=== PATIENT | female | born 1995 | race African-American/Black ===

== ENCOUNTER 2023-10-24 08:57 | Outpatient (AMB) | payer OTHER, SELFPAY ==
--- NOTE | 2023-10-24 09:05 | A.OFFPC_ITS ---
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 Film Required: No Accompanied by: Self / Same As Patient Allergies No Known Allergies Allergy (Verified 10/24/23 09:30) Medication List - Last Reconciled 10/24/23 by Ludmila Clark MD dextroamphetamine-amphetamine 30 mg ER (Adderall XR) 30 mg PO DAILY sertraline 150 mg PO DAILY Tobacco use date assessed: 10/24/23 Dental Screening Dental Screen Date: 10/24/23 Did you have a dental visit in the last 12 months?: No Did you have a dental problem in the last 6 months where you did not have access to dental care?: No Was dental information given to patient?: Patient has dentist HPI HPI Comments History of Present Illness Details This is a 27-year-old female with mild major depression and morbid obesity that comes for her physical exam. Depression stable with SSRIs and follow by Psychiatry. She is morbidly obese with a BMI of 40.1 and declines weight loss surgery or any other kind of weight loss treatment. Has never had a Pap smear and will be referred to OBGYN for this matter. FOR[facility]LY [facility], [facility] Surgical History No pertinent past surgical history Family History (Updated 10/24/23 @ 09:36 by Ludmila Clark MD) Mother No problems noted. Father No problems noted. Maternal Grandmother Breast cancer, Onset Age: 47 HIV disease Social History (Updated 10/24/23 @ 09:37 by Ludmila Clark MD) Housing: House Alcohol intake: never Patient Tobacco Use Status: Former Tobacco user e-Cigarette/Vaping Use: Never Used Second Hand Smoke Exposure: No service: No Current occupational status: employed Current occupational exposures/hazards: No Cognitive needs: No Hearing needs: No Vision needs: Yes Questionnaire PHQ-9 Over the last 2 weeks, how often have you been bothered by any of the following problems? 1. Little interest or pleasure in doing things: not at all 2. Feeling down, depressed, or hopeless: not at all 3. Trouble falling or staying asleep, or sleeping too much: not at all 4. Feeling tired or having little energy: not at all 5. Poor appetite or overeating: not at all 6. Feeling bad about yourself - or that you are a failure or have let yourself or your family down: not at all 7. Trouble concentrating on things, such as reading the newspaper or watching television: not at all 8. Moving or speaking so slowly that other people could have noticed. Or the opposite - being so fidgety or restless that you have been moving around a lot more than usual: not at all 9. Thoughts that you would be better off or of hurting yourself in some way: not at all Total score: 0 Depression Screening Interpretation: Negative Depression Screening Done: Yes 78168 - PHQ-9 Billing: Yes Source: Developed by Drs. Abraham Byers, Alfreda Bailey, Alok Wood and colleagues, with an educational millicent from [employer] Thrive Questionnaire Date Thrive assessed: 10/24/23 I am a: Patient What is your living situation today?: I have a steady place to live Within the past 12 months, did the food you bought not last and you didn't have the money to get more?: Never true Within the past 12 months, did you worry whether your food would run out before you got money to buy more?: Never true Do you have trouble paying for medicines?: No Do you have trouble getting transportation to medical appointments?: No Do you have trouble paying your heating and electricity bill?: No Do you have trouble taking care of your child, family member or friend?: No Do you have trouble with day-to-day activities such as bathing, preparing meals, shopping, managing finances, etc.?: No Are you currently unemployed and looking for a job?: No Are you interested in more education?: No Please select the resources that you would like help with: None Currently or been in a relationship where the following occur: No concerns reported THRIVE Score: 0 AUDIT C Alcohol Use Questionnaire (AUDIT-C) 1. How often do you have a drink containing alcohol?: Never Total Score: 0 Score Reviewed/Action Taken: No ROBINSON-7 AMB Questionnaire ROBINSON-7 Date ROBINSON - 7 assessed: 10/24/23 Feeling nervous, anxious, or on edge: 0 = Not at all Not being able to stop or control worryin = Not at all Worrying too much about different things: 0 = Not at all Trouble relaxin = Not at all Being so restless that it is hard to sit still: 0 = Not at all Becoming easily annoyed or irritable: 0 = Not at all Feeling afraid as if something awful might happen: 0 = Not at all Total ROBINSON-7 score (0-4 normal; 5-9 mild; 10-14 moderate; 15-21 severe): 0 Source: Developed by Drs. Abraham Byers, Alfreda Bailey, Alok Wood and colleagues, with an educational millicent from [employer] ROBINSON-7 Assessment Billing ROBINSON-7 Assessment Tool: ROBINSON-7 Assessment 93469 Review of Systems Const All systems reviewed & are unremarkable except as noted in HPI and below Card Denies chest pain at rest, Denies chest pain with activity, Denies edema, Denies irregular heart rhythm, Denies claudication, Denies dyspnea, Denies dyspnea on exertion, Denies orthopnea, Denies paroxysmal nocturnal dyspnea and Denies slow heart rate Resp Denies cough, Denies dyspnea and Denies dyspnea on exertion GI Denies abdominal pain, Denies change in bowel habits, Denies excessive flatus, Denies nausea and Denies vomiting Neuro Denies lack of coordination Physical exam (Primary Care) Vital Signs: Last Vital Signs BP 124/80 10/24/23 09:07 BMI result Body Mass Index 40.1 BMI Assessment/Plan discussion: High BMI High, discussed plan: lifestyle, weight reduction, dietary and physical activity Tobacco/Smoking Status: Tobacco use Status Tobacco use date assessed 10/24/23 10/24/23 09:13 Patient Tobacco Use Status Former Tobacco user 10/24/23 09:37 e-Cigarette/Vaping Use Never Used 10/24/23 09:37 PHQ-9: PHQ-9 Score PHQ-9: Total score 0 10/24/23 09:45 Depression Screening Interpretation: Negative Thrive Assessment: Date of Thrive Assessment Date Thrive assessed 10/24/23 10/24/23 09:15 Currently or been in a relationship where the following occur: No concerns reported HENMT Head: Yes normal to inspection, Yes normocephalic and Yes atraumatic Ears: external ears normal Eyes General: appearance normal, both eyes and all related structures Eyelids: Yes eyelids normal Conjunctivae: conjunctivae normal Neck Neck: Yes normal visual inspection and Yes supple Resp Effort & Inspection: normal respiratory effort Auscultation: clear to auscultation bilaterally Cardio Jugular venous distension: no JVD Rate: regular rate Rhythm: regular rhythm Heart sounds: S1 normal heart sound present and S2 normal heart sound present GI Inspection: Yes normal to inspection Palpation (GI): Soft to palpation and nontender Auscultation: normal bowel sounds Skin General skin exam: no rashes or lesions noted Neuro General: no focal motor deficits Extrem General: Yes full ROM Psych Appearance: grossly normal Immunizations Boostrix Tdap 2.5 Lf unit-8 mcg-5 Lf/0.5 mL intramuscular syringe Performing Provider: Ludmila Clark MD [facility] Administered by: SHEILA Garcia on 10/24/23 09:48 Dose Route Admin Location Dispensed Lot Number Expiration Date NDC Mannequin Decorator 0.5 mL IM Right Deltoid 0.5 mL [id number] 12/18/25 [id number] [employer] VIS Given Date VIS Provided VIS Publication Date 10/24/23 Single Vaccine 20 Eligibility Eligibility Date Funding Source Not [facility] Eligible 10/24/23 Private Assessment and Plan Assessment & Plan (1) Physical exam: Code(s): Z00.00 - Encounter for general adult medical examination without abnormal findings Plan: Repeat in a year. (2) Morbid obesity with BMI of 40.0-44.9, adult: Code(s): E66.01 - Morbid (severe) obesity due to excess calories; Z68.41 - Body mass index [BMI] 40.0-44.9, adult Plan: Start diet and exercise. BMI goal is less than 30. (3) Mild major depression: Code(s): F32.0 - Major depressive disorder, single episode, mild Plan: Continue SSRIs. Follow-up with psychiatry. Orders: Orders Lipid Panel Today Z00.00 - Encounter for general adult medical examination without abnormal findings Comprehensive Justin. 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
[2023-10-24 09:07] VITALS: BP 124/80; BMI 40.1
== END 2023-10-24 09:49 | disposition home or self-care (01) ==
PROVIDERS: PCP Internal Medicine; Visit Provider Internal Medicine
DX: Z00.00 Encounter for general adult medical examination without abnormal findings (principal); E66.01 Morbid (severe) obesity due to excess calories; Z68.41 Body mass index [BMI] 40.0-44.9, adult; Z23 Encounter for immunization; F32.0 Major depressive disorder, single episode, mild
CPT/HCPCS: 90471; 90715; 99395

== ENCOUNTER 2023-11-21 13:16 | Outpatient (REF) | payer OTHER, SELFPAY ==
[2023-11-22 06:10] LABS: CT PCR DETECTED (Not Detect.); NG PCR NOT DETECTED (Not Detect.)
[2023-11-22 10:39] LABS: Bacterial Vaginosis PCR NEGATIVE (Negative); Candida Group PCR NOT DETECTED (Not Detect); Candida glab krusei PCR NOT DETECTED (Not Detect); Trichomonas vaginalis PCR NOT DETECTED (Not Detect)
== END 2023-11-21 13:17 | disposition home or self-care (01) ==
LOC: HO.LAB 13:16
PROVIDERS: PCP Internal Medicine; Visit Provider Advanced Practice Midwife
DX: Z00.00 Encounter for general adult medical examination without abnormal findings (principal); N89.8 Other specified noninflammatory disorders of vagina; E66.01 Morbid (severe) obesity due to excess calories; Z68.41 Body mass index [BMI] 40.0-44.9, adult; N92.0 Excessive and frequent menstruation with regular cycle; Z87.42 Personal history of other diseases of the female genital tract; L70.9 Acne, unspecified; L68.0 Hirsutism
CPT/HCPCS: 0352U; 36415; 87491; 87591; 87625; 88175; 99385

== ENCOUNTER 2023-11-21 13:16 | Outpatient (AMB) | payer OTHER, SELFPAY ==
[2023-11-21 13:42] VITALS: BP 128/68; BMI 40.4
--- NOTE | 2023-11-21 13:42 | MHC.OFFVIS ---
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 Toy Stuffer Required: No Information Interpreted: clinical only Lunchroom Supervisor: Lunchroom Supervisor Present Allergies No Known Allergies Allergy (Verified 11/21/23 13:43) Medication List - Last Reconciled 11/21/23 by Lakisha Hernandes CNM dextroamphetamine-amphetamine 30 mg ER (Adderall XR) 30 mg PO DAILY medroxyprogesterone (Depo-Provera) 150 mg IM [id number] sertraline 150 mg PO DAILY Is last menstrual period known: No (depo) Do you need a note to return to daycare/school/sports/work: No HPI HPI 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 She is on Depo-Provera and has been for a long time she took a break from it for few years and was very sexually active in that time but still did not achieve though she was not actively trying but she was extremely sexually active time did not. She wonders if she has PCOS and whether not she is in fertile She currently is not very sexually active but is on the Depo-Provera basically to manage her longstanding history of severe dysmenorrhea and menorrhagia. Her periods were such that they were life altering in every way and that is why she has mostly been on Depo Provera [facility]. Her next dose is due in a month. She says they have talked to her about Mirena is well. She is wondering about getting tested to see if there is anything wrong such as PCOS or endometriosis. FORMERLY [facility] Surgical History No pertinent past surgical history Family History Mother No problems noted. Father No problems noted. Maternal Grandmother Breast cancer, Onset Age: 47 HIV disease Social History Housing: House Alcohol intake: never Patient Tobacco Use Status: Former Tobacco user e-Cigarette/Vaping Use: Never Used Second Hand Smoke Exposure: No service: No Current occupational status: employed Current occupational exposures/hazards: No Cognitive needs: No Hearing needs: No Vision needs: Yes Female Reproductive History Menstrual Age of Menarche: 10 Duration of menses: 6-7 days control method: progesterone injection Total pregnancies: 0 History of abnormal pap smear: No (no previous pap) Physical Exam Vital Signs: Last Vital Signs BP 128/68 11/21/23 13:42 BMI result Body Mass Index 40.4 Const General: healthy appearing, comfortable, no acute distress, well developed and alert Nutritional Appearance: average body habitus Orientation/consciousness: patient oriented x3 Limitations: no limitations HEENT Head: Yes normocephalic Neck Neck: Yes normal visual inspection Chest Chest palpation & inspection: normal inspection of the chest Breast/axilla inspection: normal inspection of the breasts and normal inspection of the axillae Breast/axilla palpation: normal palpation of the breasts and normal palpation of the axillae Resp Effort & Inspection: normal respiratory effort GI Inspection: Yes normal to inspection, No Abdominal wall edema and No distended Palpation (GI): Soft to palpation and nontender Other: External exam within normal limits vagina is pink and moist cervix is nulliparous pink smooth mobile nontender uterus difficult to feel secondary to adipose but feels probably midposition mobile nontender adnexa feels nontender not enlarged has good tone with Kegel. General: Yes bladder normal to palpation External Female Exam: normal external appearance and normal appearance of the urethra Speculum Exam - Vagina: normal appearance of the vagina, normal palpation and normal vaginal discharge Speculum Exam - Cervix: normal appearance of the cervix, normal palpation and nontender Bimanual exam- vagina & uterus: normal bimanual exam, normal palpation, uterine size normal, bladder normal to palpation, consistency normal, normal palpation, uterine mobility normal, uterine shape normal, No Cervical tenderness present, non-tender and no cervical motion tenderness Bimanual Exam- Adnexa, other: normal adnexae, no masses, normal and No adnexal tenderness Neuro General: patient oriented x3 Assessment & Plan Assessment & Plan (1) Morbid obesity with BMI of 40.0-44.9, adult: Code(s): E66.01 - Morbid (severe) obesity due to excess calories; Z68.41 - Body mass index [BMI] 40.0-44.9, adult Category: Medical (2) Hx of dysmenorrhea: Comment: Currently suppressed with Depo-Provera Code(s): Z87.42 - Personal history of other diseases of the female genital tract Category: Medical (3) Hx of infertility: Comment: When she was off Depo-Provera in past.... Code(s): Z87.42 - Personal history of other diseases of the female genital tract Category: Medical (4) Hirsutism: Code(s): L68.0 - Hirsutism Category: Medical (5) Acne: Code(s): L70.9 - Acne, unspecified Category: Medical (6) Menorrhagia with regular cycle: Comment: Currently suppressed with Depo-Provera Code(s): N92.0 - Excessive and frequent menstruation with regular cycle Category: Medical Plan -----Discussed in this visit the following: healthy balanced diet, regular and consistent exercise, getting recommended health screens, doing the best she can for her particular health concerns, kegel exercises, pap smear screening and followup recommendations, mammography screening and SBE, normal changes in cycles in her life stage--- .-I reviewed with the patient, all of the currently common used methods of control that are available. We reviewed how they work in the body, how they are taken, common side effects, uncommon side effects, precautions, and contraindications. -Discussed also factors that influence their effectiveness and use, and womens satisfaction with the method. -Discussed how each are used, and drawbacks of each method as well. -Methods covered included: condoms, control pills, control patches, control rings, Depo-Provera, Nexplanon, Mirena and Kyleena IUDs, and ParaGard IUDs. All of the above methods were covered in great detail including their side effect profiles and common experiences that women have and ways to mitigate against the negative experiences including attention to diet and exercise patient's with bleeding challenges that may occur her and efforts to time the initiation of the method to this start of the menstrual period. - ---Discussed PCOS in general and specifically about the interplay of the abnormal hormonal milieu related to being overweight, with the elevations of many hormone levels, including testosterone and estrogen, as well as others that contribute to cycles that are anovulatory and therefore prolonged, and when periods do come they come very heavy, and can contribute to lots of cramping, with passage of clots and anemia. Discussed the common symptoms related to the elvated hormonal levels, including increased facial hair, male pattern hair thinning, acne, and increased central abdominal girth. Discussed the interplay with difficulty getting when desired, but still possible, and therefore the need to contracept as appropriate and when needed. Discussed the role of weight loss as the primary, most important, and most likely to succeed, intervention, in achieving healthier status as regards PCOS, and ovulatory regular cycles. Additionally the very important relationship to elevated insulin levels, and blood sugars, and high risk of pre diabetes, progressing to diabetes as well as other metabolic syndromes related to this was discussed. Also discussed common interventions for some of the above, including if appropriate, use of oral contraceptives, and progestin iuds, and provera. Orders: Orders Sex Hormone Binding Globulin Today E66.01 - Morbid (severe) obesity due to excess calories, L68.0 - Hirsutism, L70.9 - Acne, unspecified, N92.0 - Excessive and frequent menstruation with regular cycle, Z68.41 - Body mass index [BMI] 40.0-44.9, adult, Z87.42 - Personal history of other diseases of the female genital tract Prolactin Today E66.01 - Morbid (severe) obesity due to excess calories, L68.0 - Hirsutism, L70.9 - Acne, unspecified, N92.0 - Excessive and frequent menstruation with regular cycle, Z68.41 - Body mass index [BMI] 40.0-44.9, adult, Z87.42 - Personal history of other diseases of the female genital tract Lutenizing Hormone Today E66.01 - Morbid (severe) obesity due to excess calories, L68.0 - Hirsutism, L70.9 - Acne, unspecified, N92.0 - Excessive and frequent menstruation with regular cycle, Z68.41 - Body mass index [BMI] 40.0-44.9, adult, Z87.42 - Personal history of other diseases of the female genital tract PAP rfx HPV E6/E7 and 16 18/45 Today Z00.00 - Encounter for general adult medical examination without abnormal findings Bacterial Vaginosis Panel Today N89.8 - Other specified noninflammatory disorders of vagina US pelvic and transvaginal Today E66.01 - Morbid (severe) obesity due to excess calories, L68.0 - Hirsutism, L70.9 - Acne, unspecified, N92.0 - Excessive and frequent menstruation with regular cycle, Z68.41 - Body mass index [BMI] 40.0-44.9, adult, Z87.42 - Personal history of other diseases of the female genital tract Testosterone, Free/Total Today E66.01 - Morbid (severe) obesity due to excess calories, L68.0 - Hirsutism, L70.9 - Acne, unspecified, N92.0 - Excessive and frequent menstruation with regular cycle, Z68.41 - Body mass index [BMI] 40.0-44.9, adult, Z87.42 - Personal history of other diseases of the female genital tract Follicle Stimulating Hormone Today E66.01 - Morbid (severe) obesity due to excess calories, L68.0 - Hirsutism, L70.9 - Acne, unspecified, N92.0 - Excessive and frequent menstruation with regular cycle, Z68.41 - Body mass index [BMI] 40.0-44.9, adult, Z87.42 - Personal history of other diseases of the female genital tract DHEA Sulfate Today E66.01 - Morbid (severe) obesity due to excess calories, L68.0 - Hirsutism, L70.9 - Acne, unspecified, N92.0 - Excessive and frequent menstruation with regular cycle, Z68.41 - Body mass index [BMI] 40.0-44.9, adult, Z87.42 - Personal history of other diseases of the female genital tract CT NG by PCR Today N89.8 - Other specified noninflammatory disorders of vagina Coding Level of Care Code New Pt Prev Care 18-39yr([id number] Diagnoses Morbid obesity with BMI of 40.0-44.9, adult E66.01; Z68.41 Hx of dysmenorrhea Z87.42 Hx of infertility Z87.42 Hirsutism L68.0 Acne L70.9 Menorrhagia with regular cycle N92.0
== END 2023-11-21 14:42 | disposition home or self-care (01) ==
LOC: HO.HWSM 13:16
PROVIDERS: PCP Internal Medicine; Visit Provider Advanced Practice Midwife
DX: Z01.419 Encounter for gynecological examination (general) (routine) without abnormal findings (principal); E66.01 Morbid (severe) obesity due to excess calories; Z68.41 Body mass index [BMI] 40.0-44.9, adult; Z87.42 Personal history of other diseases of the female genital tract; L68.0 Hirsutism; L70.9 Acne, unspecified; N92.0 Excessive and frequent menstruation with regular cycle
CPT/HCPCS: 99385

== ENCOUNTER 2023-11-26 14:37 | Outpatient (REF) | payer OTHER, SELFPAY ==
--- NOTE | ~2023-11-26 | US_ITS ---
EXAMINATION: US PELVIS CLINICAL INFORMATION: Excessive and frequent menstruation with regular cycle, unknown last menstrual period on depo. COMPARISON: None available. TECHNIQUE: Ultrasound of the pelvis is performed using both transabdominal and transvaginal transducers along with Doppler. Transvaginal imaging is performed due to inadequate visualization transabdominally. FINDINGS: The uterus is anteverted and measures 7.2 x 2.3 x 3.9 cm. Prominent, dilated uterine vessels. Endometrial thickness is 1 mm. Right ovary measures 3.7 x 2.1 x 1.9 cm, volume 7.1 mL with multiple small peripheral follicles. Left ovary measures 2.9 x 1.8 x 1.5 cm, volume 4.1 mL and is difficult to characterize as visualization is limited due to bowel gas. No significant free fluid. US/US pelvic and transvaginal IMPRESSION: 1. Endometrial thickness is 1 mm. 2. Prominent, dilated uterine vessels. 3. Right ovary measures 3.7 x 2.1 x 1.9 cm, volume 7.1 mL with multiple small peripheral follicles. 4. Left ovary is difficult to characterize as visualization is limited due to bowel gas. Electronically signed by: Karin Walters MD 12/12/2023 07:40 AM EDT
== END 2023-11-26 14:38 | disposition home or self-care (01) ==
LOC: HO.US 14:37
PROVIDERS: PCP Internal Medicine; Visit Provider Advanced Practice Midwife
DX: E66.01 Morbid (severe) obesity due to excess calories (principal); Z68.41 Body mass index [BMI] 40.0-44.9, adult; Z87.42 Personal history of other diseases of the female genital tract; L68.0 Hirsutism; L70.9 Acne, unspecified; N92.0 Excessive and frequent menstruation with regular cycle
CPT/HCPCS: 76830; 76856

== ENCOUNTER 2024-02-05 13:53 | Outpatient (REF) | payer OTHER, SELFPAY ==
[2024-02-06 03:08] LABS: CT PCR NOT DETECTED (Not Detect.); NG PCR NOT DETECTED (Not Detect.)
[2024-02-06 11:55] LABS: Bacterial Vaginosis PCR NEGATIVE (Negative); Candida Group PCR NOT DETECTED (Not Detect); Candida glab krusei PCR NOT DETECTED (Not Detect); Trichomonas vaginalis PCR NOT DETECTED (Not Detect)
== END 2024-02-05 13:54 | disposition home or self-care (01) ==
LOC: HO.LAB 13:53
PROVIDERS: PCP Internal Medicine; Visit Provider Advanced Practice Midwife
DX: N89.8 Other specified noninflammatory disorders of vagina (principal); Z20.2 Contact with and (suspected) exposure to infections with a predominantly sexual mode of transmission; A74.9 Chlamydial infection, unspecified; N92.0 Excessive and frequent menstruation with regular cycle; L70.9 Acne, unspecified; L68.0 Hirsutism; Z12.4 Encounter for screening for malignant neoplasm of cervix; E28.2 Polycystic ovarian syndrome; Z11.3 Encounter for screening for infections with a predominantly sexual mode of transmission; Z87.42 Personal history of other diseases of the female genital tract
CPT/HCPCS: 0352U; 87491; 87591; 99212

== ENCOUNTER 2024-02-05 13:53 | Outpatient (AMB) | payer OTHER, SELFPAY ==
[2024-02-05 14:17] VITALS: BP 120/70
--- NOTE | 2024-02-05 14:17 | MHC.OFFVIS ---
Vital Signs 02/05/24 14:17 Height 5 ft 7 in BP 120/70 Intake Visit Reasons: Ultra sound follow up/ [facility] Information Interpreted: clinical only Beverage Specialist: Beverage Specialist Present Allergies No Known Allergies Allergy (Verified 02/05/24 14:19) Is last menstrual period known: Yes Last menstrual period: 02/02/24 HPI HPI Ultra sound follow up/ [facility]: Details: Patient is here for follow-up of her ultrasound that she had done that she wanted to have done to questioned why she had not been able to get when she was more interested in that years ago and not contraceptive thing. She is not interested in childbearing at this time or ever actually. She has a history of hirsute is Um somewhat irregular periods she has always been overweight ever since the start of her menses though she thinks she was not this heavy before. She is on Depo-Provera for the last 6-9 months [facility]. She also had chlamydia diagnosed at the last visit so this visit is also for test cure visit. [facility] Surgical History No pertinent past surgical history Family History Mother No problems noted. Father No problems noted. Maternal Grandmother Breast cancer, Onset Age: 47 HIV disease Social History Housing: House Alcohol intake: never Patient Tobacco Use Status: Former Tobacco user e-Cigarette/Vaping Use: Never Used Second Hand Smoke Exposure: No service: No Current occupational status: employed Current occupational exposures/hazards: No Cognitive needs: No Hearing needs: No Vision needs: Yes Female Reproductive History Menstrual Age of Menarche: 10 Date of last menstrual period: 02/02/24 Physical Exam Vital Signs: Last Vital Signs BP 120/70 02/05/24 14:17 Other: Patient has menses as well. nulliparous cervix easily visible. External Female Exam: normal external appearance and normal appearance of the urethra Speculum Exam - Vagina: normal appearance of the vagina and normal vaginal discharge Speculum Exam - Cervix: normal appearance of the cervix and Cervical os closed Results Reviewed Results Reviewed: Patient: Violeta Garcia MR#: [id number] : 1995 Acct:[id number] Age/Sex: 27 / F ADM Date: 11/26/23 Loc: [facility].US Attending Dr: Lakisha Hernandes CNM Ordering Physician: Lakisha Hernandes CNM Date of Service: 11/26/23 Procedure(s): US pelvic and transvaginal Accession Number(s): [id number] cc: Lakisha Hernandes CNM; Ludmila Murray MD~ EXAMINATION: US PELVIS CLINICAL INFORMATION: Excessive and frequent menstruation with regular cycle, unknown last menstrual period on depo. COMPARISON: None available. TECHNIQUE: Ultrasound of the pelvis is performed using both transabdominal and transvaginal transducers along with Doppler. Transvaginal imaging is performed due to inadequate visualization transabdominally. FINDINGS: The uterus is anteverted and measures 7.2 x 2.3 x 3.9 cm. Prominent, dilated uterine vessels. Endometrial thickness is 1 mm. Right ovary measures 3.7 x 2.1 x 1.9 cm, volume 7.1 mL with multiple small peripheral follicles. Left ovary measures 2.9 x 1.8 x 1.5 cm, volume 4.1 mL and is difficult to characterize as visualization is limited due to bowel gas. No significant free fluid. US/US pelvic and transvaginal IMPRESSION: 1. Endometrial thickness is 1 mm. 2. Prominent, dilated uterine vessels. 3. Right ovary measures 3.7 x 2.1 x 1.9 cm, volume 7.1 mL with multiple small peripheral follicles. 4. Left ovary is difficult to characterize as visualization is limited due to bowel gas. Electronically signed by: Karin Walters MD 12/12/2023 07:40 AM EDT Dictated By: Karin Walters MD Signed By: <Electronically signed by Karin Walters MD in OV> 12/12/23 0740 DD/ 1502 TD/TT: 11/26/23 1527 Transcripti Name: Violeta Garcia Age/Sex: 27/F : 1995 Unit#: [id number] Attend Dr: Lakisha Hernandes Nery OBINNA Re11/21/23 Status: [facility]P [facility] SPEC : [id number] RAIN: 11/21/23-UNK STATUS: COMP REQ : [id number] RECD: 11/21/23-1808 [facility] DR: Lakisha Hernandes Nery OBINNA COMP: 11/22/23 ENTERED: 11/21/23-1804 [facility] DR: Ludmila Murray MD ORDERED: CT NG by PCR QUERIES: CT NG Source: Vaginal Test Result Flag Reference CT PCR DETECTED A Not Detect. Detected results may be observed after successful antibiotic treatment due to target nucleic acids from residual non-viable chlamydia. As with many diagnostic tests, results from the Xpert CT/NG assay should be interpreted in conjunction with other laboratory and clinical data available to the clinician. Xpert CT/NG performance has not been evaluated in patients less than 14 years of age. The assay should not be used for the evaluation of suspected sexual abuse or for other medico-legal indications. Additional testing is recommended in any circumstance when false positive or false negative results could lead to adverse medical, social or psychological consequences. These results must be reported by the ordering clinician or clinical facility to the [facility] as required by state law. NG PCR NOT DETECTED Not Detect. A not detected test result does not exclude the possibility of infection because test results can be affected by improper specimen collection, concurrent antibiotic therapy, or the number of organisms in the specimen which may be below the sensitivity of the test. As with many diagnostic tests, results from the Xpert CT/NG assay should be interpreted in conjunction with other laboratory and clinical data available to the clinician. Xpert CT/NG performance has not been evaluated in patients less than 14 years of age. The assay should not be used for the evaluation of suspected sexual abuse or for other medico-legal indications. Additional testing is recommended in any circumstance when false positive or false negative results could lead to adverse medical, social or psychological consequences. Assessment & Plan Assessment & Plan (1) Chlamydia infection: Comment: 11/21/23- rx'd 11/22/23..[facility] 02/05/24.. Code(s): A74.9 - Chlamydial infection, unspecified Category: Medical (2) Menorrhagia with regular cycle: Comment: Currently suppressed with Depo-Provera Code(s): N92.0 - Excessive and frequent menstruation with regular cycle Category: Medical (3) Acne: Code(s): L70.9 - Acne, unspecified Category: Medical (4) Hirsutism: Code(s): L68.0 - Hirsutism Category: Medical (5) Hx of infertility: Comment: When she was off Depo-Provera in past.... Code(s): Z87.42 - Personal history of other diseases of the female genital tract Category: Medical (6) Hx of dysmenorrhea: Comment: Currently suppressed with Depo-Provera Code(s): Z87.42 - Personal history of other diseases of the female genital tract Category: Medical (7) Screening for cervical cancer: Comment: 11/21/2023 Pap is negative. Code(s): Z12.4 - Encounter for screening for malignant neoplasm of cervix Category: Medical (8) PCOS (polycystic ovarian syndrome): Comment: Has hirsutism and acne, history of irregular periods, elevated bmi, has had periods of not being able to get when not protecting has multiple peripheral follicles on ovary, Did not yet do the lab work, however nevertheless, meets criteria for diagnosis at this time. Code(s): E28.2 - Polycystic ovarian syndrome Category: Medical (9) Encounter for screening examination for sexually transmitted disease: Code(s): Z11.3 - Encounter for screening for infections with a predominantly sexual mode of transmission Category: Medical Plan Reviewed the ultrasound in great detail reviewed the diagnostic criteria for PCOS and that she does in fact meet at least 3 of the criteria. She has not done the blood work yet but she is going to do that. Test of cure for chlamydia was done and she was interested getting blood work for the other STIs and I ordered those today as well. She is interested in finding out whether not she can have her uterus removed she was not particularly interested in the Mirena IU S that I discussed with her the last time. I discussed that it was not very likely that the sawdust drier at [facility] the interested in in removing the uterus with no pathology. I suggested she investigate other options [facility] I recommend she sign to have records of her ultrasound [facility] so that she can have a full discussion with whoever or her providers there and sees they have recommendations for where she should seek further urogynecology physician care I did suggest that she may want to revisit the question of a Mirena IU S or there substitution IU S as it may fulfill her needs for control for long-term as well as dealing with previous dysmenorrhea and irregular menses without the risks of surgery. Orders: Orders Hepatitis C Antibody Today Z11.3 - Encounter for screening for infections with a predominantly sexual mode of transmission Syphilis Screen Today Z11.3 - Encounter for screening for infections with a predominantly sexual mode of transmission CT NG by PCR Today N89.8 - Other specified noninflammatory disorders of vagina, Z20.2 - Contact with and (suspected) exposure to infections with a predominantly sexual mode of transmission Bacterial Vaginosis Panel Today N89.8 - Other specified noninflammatory disorders of vagina Hepatitis B Surface Antigen Today Z11.3 - Encounter for screening for infections with a predominantly sexual mode of transmission HIV Ab/Ag Today Z11.3 - Encounter for screening for infections with a predominantly sexual mode of transmission Coding Level of Care Code Est Pt Level 3 (17728) Diagnoses Chlamydia infection A74.9 Menorrhagia with regular cycle N92.0 Acne L70.9 Hirsutism L68.0 Hx of infertility Z87.42 Hx of dysmenorrhea Z87.42 Screening for cervical cancer Z12.4 PCOS (polycystic ovarian syndrome) E28.2 Encounter for screening examination for sexually transmitted disease Z11.3
== END 2024-02-05 15:24 | disposition home or self-care (01) ==
LOC: HO.HWSM 13:54
PROVIDERS: PCP Internal Medicine; Visit Provider Advanced Practice Midwife
DX: A74.9 Chlamydial infection, unspecified (principal); N92.0 Excessive and frequent menstruation with regular cycle; L70.9 Acne, unspecified; L68.0 Hirsutism; Z87.42 Personal history of other diseases of the female genital tract; Z12.4 Encounter for screening for malignant neoplasm of cervix; E28.2 Polycystic ovarian syndrome; Z11.3 Encounter for screening for infections with a predominantly sexual mode of transmission
CPT/HCPCS: 99213

== ENCOUNTER 2024-10-29 09:33 | Outpatient (AMB) | payer OTHER, SELFPAY ==
--- NOTE | 2024-10-29 09:34 | A.OFFPC_ITS ---
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 Required: No Accompanied by: Self / Same As Patient Allergies No Known Allergies Allergy (Verified 10/29/24 09:43) Medication List - Last Reconciled 10/29/24 by Ludmila Clark MD dextroamphetamine-amphetamine 30 mg ER (Adderall XR) 30 mg PO DAILY medroxyprogesterone (Depo-Provera) 150 mg IM [id number] sertraline 150 mg PO DAILY Tobacco use date assessed: 10/29/24 Dental Screening Dental Screen Date: 10/29/24 Did you have a dental visit in the last 12 months?: No Did you have a dental problem in the last 6 months where you did not have access to dental care?: No Was dental information given to patient?: Patient has dentist HPI HPI Comments History of Present Illness Details The patient is a 28-year-old female presenting with a physical exam and ongoing health concerns. She has been diagnosed with Polycystic Ovary Syndrome (PCOS) following an abnormal pelvic exam, which revealed findings consistent with the condition. The patient reports hirsutism, characterized by excessive facial hair growth, as a symptom of PCOS. The patient has a history of depression and anxiety, which are currently well- controlled with sertraline 150 mg daily. She also takes Adderall 30 mg daily, prescribed by her psychiatrist, Jarrett Valladares. The patient reports chronic back pain, primarily in the thoracic region, which she attributes to the weight of her breasts. She has been more physically active in an attempt to alleviate the pain, but finds relief only when lying flat on her back. The patient has been advised that breast reduction surgery may be beneficial, but her current BMI of 36.8 precludes this option until it is reduced to below 30. The patient has no history of surgeries and reports no allergies to medications. She does not consume alcohol and has quit smoking. Her family history is unremarkable, with both parents alive and healthy. - Tdap vaccination up to date, next due in 2033 - Pap smear completed last year - Blood work ordered for thyroid, hormon es, and other screenings [facility] Medical History (Updated 10/29/24 @ 10:09 by Ludmila Clark MD) Morbid obesity with BMI of 40.0-44.9, adult Surgical History No pertinent past surgical history Family History Mother No problems noted. Father No problems noted. Maternal Grandmother Breast cancer, Onset Age: 47 HIV disease Social History Housing: House Alcohol intake: never Patient Tobacco Use Status: Former Tobacco user Tobacco use type: Cigarette e-Cigarette/Vaping Use: Never Used Second Hand Smoke Exposure: No service: No Current occupational status: employed Current occupational exposures/hazards: No Cognitive needs: No Hearing needs: No Vision needs: Yes Female Reproductive History Menstrual Age of Menarche: 10 Questionnaire PHQ-9 Over the last 2 weeks, how often have you been bothered by any of the following problems? 1. Little interest or pleasure in doing things: not at all 2. Feeling down, depressed, or hopeless: not at all 3. Trouble falling or staying asleep, or sleeping too much: not at all 4. Feeling tired or having little energy: not at all 5. Poor appetite or overeating: not at all 6. Feeling bad about yourself - or that you are a failure or have let yourself or your family down: not at all 7. Trouble concentrating on things, such as reading the newspaper or watching television: not at all 8. Moving or speaking so slowly that other people could have noticed. Or the opposite - being so fidgety or restless that you have been moving around a lot more than usual: not at all 9. Thoughts that you would be better off or of hurting yourself in some way: not at all Total score: 0 Depression Screening Interpretation: Negative Depression Screening Done: Yes 96887 - PHQ-9 Billing: Yes Source: Developed by Drs. Abraham Byers, Alfreda Bailey, Alok Wood and colleagues, with an educational millicent from [employer]. Thrive Questionnaire Date Thrive assessed: 10/29/24 I am a: Patient What is your living situation today?: I have a steady place to live Within the past 12 months, did the food you bought not last and you didn't have the money to get more?: Never true Within the past 12 months, did you worry whether your food would run out before you got money to buy more?: Never true Do you have trouble paying for medicines?: No Do you have trouble getting transportation to medical appointments?: No Do you have trouble paying your heating and electricity bill?: No Do you have trouble taking care of your child, family member or friend?: No Do you have trouble with day-to-day activities such as bathing, preparing meals, shopping, managing finances, etc.?: No Are you currently unemployed and looking for a job?: No Are you interested in more education?: Yes Please select the resources that you would like help with: None Currently or been in a relationship where the following occur: No concerns reported THRIVE Score: 0 AUDIT C Alcohol Use Questionnaire (AUDIT-C) 1. How often do you have a drink containing alcohol?: Monthly or less 2. How many drinks containing alcohol do you have on a typical day when you are drinking?: 3 or 4 3. How often do you have six or more drinks on one occasion?: Never Total Score: 2 Score Reviewed/Action Taken: No ROBINSON-7 AMB Questionnaire ROBINSON-7 Date ROBINSON - 7 assessed: 10/29/24 Feeling nervous, anxious, or on edge: 0 = Not at all Not being able to stop or control worryin = Not at all Worrying too much about different things: 0 = Not at all Trouble relaxin = Several days Being so restless that it is hard to sit still: 0 = Not at all Becoming easily annoyed or irritable: 0 = Not at all Feeling afraid as if something awful might happen: 0 = Not at all Total ROBINSON-7 score (0-4 normal; 5-9 mild; 10-14 moderate; 15-21 severe): 1 Source: Developed by Drs. Abraham Byers, Alfreda Bailey, Alok Wood and colleagues, with an educational millicent from [employer]. ROBINSON-7 Assessment Billing ROBINSON-7 Assessment Tool: ROBINSON-7 Assessment 86317 Review of Systems Const All systems reviewed & are unremarkable except as noted in HPI and below Card Denies chest pain at rest, Denies chest pain with activity, Denies edema, Denies irregular heart rhythm, Denies claudication, Denies dyspnea, Denies dyspnea on exertion, Denies orthopnea, Denies paroxysmal nocturnal dyspnea and Denies slow heart rate Resp Denies cough, Denies dyspnea and Denies dyspnea on exertion Neuro Denies lack of coordination Physical exam (Primary Care) Vital Signs: Last Vital Signs BP 132/80 10/29/24 09:36 BMI result Body Mass Index 36.8 BMI Assessment/Plan discussion: High BMI High, discussed plan: lifestyle, weight reduction, dietary and physical activity Tobacco/Smoking Status: Tobacco use Status Tobacco use date assessed 10/29/24 10/29/24 09:40 Patient Tobacco Use Status Former Tobacco user 10/29/24 09:34 Tobacco use type Cigarette 10/29/24 09:40 e-Cigarette/Vaping Use Never Used 10/29/24 09:34 PHQ-9: PHQ-9 Score PHQ-9: Total score 0 10/29/24 09:46 Depression Screening Interpretation: Negative Thrive Assessment: Date of Thrive Assessment Date Thrive assessed 10/29/24 10/29/24 09:34 Currently or been in a relationship where the following occur: No concerns reported Const Orientation/consciousness: patient oriented x3 HENSD Head: Yes normal to inspection, Yes normocephalic and Yes atraumatic Ears: external ears normal Eyes General: appearance normal, both eyes and all related structures Eyelids: Yes eyelids normal Conjunctivae: conjunctivae normal Neck Neck: Yes normal visual inspection and Yes supple Resp Effort & Inspection: normal respiratory effort Auscultation: clear to auscultation bilaterally Cardio Jugular venous distension: no JVD Rate: regular rate Rhythm: regular rhythm Heart sounds: S1 normal heart sound present and S2 normal heart sound present GI Inspection: Yes normal to inspection Palpation (GI): Soft to palpation and nontender Auscultation: normal bowel sounds Skin General skin exam: no rashes or lesions noted Neuro General: patient oriented x3 and no focal motor deficits Extrem General: Yes full ROM Psych Appearance: grossly normal Coding Level of Care Code Est Pt Level 3 (21237) Est Pt Prev Care 18-39y(86836) Diagnoses Physical exam Z00.00 Hirsutism L68.0 Mild major depression F32.0 PCOS (polycystic ovarian syndrome) E28.2 Additional Codes ROBINSON-7 Assessment Billing - ROBINSON-7 Assessment Tool: ROBINSON-7 Assessment [id number] ([id number]) PHQ-9 - 88205 - PHQ-9 Billing: Yes ([id number]) Time Spent (min) 33 Assessment & Plan Assessment & Plan (1) Physical exam: Code(s): Z00.00 - Encounter for general adult medical examination without abnormal findings Category: Medical (2) Hirsutism: Code(s): L68.0 - Hirsutism Category: Medical (3) Mild major depression: Code(s): F32.0 - Major depressive disorder, single episode, mild Category: Medical (4) PCOS (polycystic ovarian syndrome): Comment: Has hirsutism and acne, history of irregular periods, elevated bmi, has had periods of not being able to get when not protecting has multiple p eripheral follicles on ovary, Did not yet do the lab work, however nevertheless, meets criteria for diagnosis at this time. Code(s): E28.2 - Polycystic ovarian syndrome Category: Medical Plan The patient will undergo blood work to assess thyroid function, hormone levels, and other relevant screenings to manage her PCOS and associated symptoms. Given her BMI of 36.8, weight management strategies were discussed, including dietary modifications and increased physical activity, to potentially qualify for breast reduction surgery in the future. The patient's depression and anxiety are well- controlled with current medication, and no changes are necessary at this time. Patient was informed and verbally consented to the use of an ambient scribe for clinic note documentation during this visit. I discussed with the patient the need for blood work to evaluate her thyroid and hormone levels, which are important for managing her PCOS. We talked about the importance of maintaining a healthy BMI to qualify for breast reduction surgery, and I provided guidance on dietary changes and exercise to aid in weight loss. We also reviewed her current medications for depression and anxiety, confirming that they are effective and require no adjustments at this time. Orders: Orders DHEA Sulfate Today E28.2 - Polycystic ovarian syndrome, L68.0 - Hirsutism, L70.9 - Acne, unspecified Syphilis Screen Today Z11.3 - Encounter for screening for infections with a predominantly sexual mode of transmission HIV Ab/Ag Today Z11.3 - Encounter for screening for infections with a predominantly sexual mode of transmission Hepatitis B Profile Today Z11.3 - Encounter for screening for infections with a predominantly sexual mode of transmission, Z23 - Encounter for immunization Hepatitis C Antibody Today Z11.3 - Encounter for screening for infections with a predominantly sexual mode of transmission Sex Hormone Binding Globulin Today E28.2 - Polycystic ovarian syndrome Comprehensive [place]. Panel Fast Today E66.812 - Obesity, class 2, Z68.36 - Body mass index [BMI] 36.0-36.9, adult Follicle Stimulating Hormone Today E28.2 - Polycystic ovarian syndrome Lutenizing Hormone Today E28.2 - Polycystic ovarian syndrome Testosterone, Free/Total Today E28.2 - Polycystic ovarian syndrome Thyroid Stimulating Hormone Today E66.812 - Obesity, class 2, Z68.36 - Body mass index [BMI] 36.0-36.9, adult Complete Blood Count Auto Diff Today E66.812 - Obesity, class 2, Z68.36 - Body mass index [BMI] 36.0-36.9, adult Lipid Panel Today E66.812 - Obesity, class 2, E78.5 - Hyperlipidemia, unspecified, Z68.36 - Body mass index [BMI] 36.0-36.9, adult Patient Instructions: - Schedule and complete blood work for thyroid and hormone levels. - Follow dietary recommendations to reduce calorie intake and increase protein consumption. - Engage in regular physical activity to aid in weight management. - Continue current medications for depression and anxiety as prescribed.
[2024-10-29 09:36] VITALS: BP 132/80; BMI 36.8
== END 2024-10-29 10:05 | disposition home or self-care (01) ==
LOC: HO.HMCH 09:34
PROVIDERS: PCP Internal Medicine; Visit Provider Internal Medicine
DX: Z00.00 Encounter for general adult medical examination without abnormal findings (principal); L68.0 Hirsutism; F32.0 Major depressive disorder, single episode, mild; E28.2 Polycystic ovarian syndrome

== ENCOUNTER → 2024-10-29 09:33 | Outpatient (BNVA) | payer OTHER, SELFPAY | PROVIDERS: PCP Internal Medicine; Visit Provider Internal Medicine | DX: Z00.00 Encounter for general adult medical examination without abnormal findings (principal); E28.2 Polycystic ovarian syndrome; F41.9 Anxiety disorder, unspecified; M54.6 Pain in thoracic spine; G89.29 Other chronic pain; F32.0 Major depressive disorder, single episode, mild; L68.0 Hirsutism; E78.5 Hyperlipidemia, unspecified; E66.812 Obesity, class 2; Z68.36 Body mass index [BMI] 36.0-36.9, adult; Z79.899 Other long term (current) drug therapy | CPT/HCPCS: 96127; 99212; 99395 ==

== ENCOUNTER 2024-10-30 10:52 | Outpatient (REF) | payer OTHER, SELFPAY ==
[2024-10-30 11:06] LABS: MANUAL DIFF FLAG NO
[2024-10-30 11:40] LABS: Hematocrit 38.1 % (37.0-47.0); Hemoglobin 12.6 g/dl (12.0-16.0); Imm Gran Abs Auto 0.03 X10*3/uL (0.00-0.03); Imm Gran Pct Auto 0.3 % (0.0-0.4); Lymphocytes Absolute Auto 2.0 X10*3/uL (1.2-4.9); Mean Corpuscular HGB Conc 33.1 g/dl (31.0-35.0); Mean Corpuscular Hemoglobin 28.6 pg (27.0-33.0); Mean Corpuscular Volume 86.6 fL (80.0-98.0); NRBC Abs Auto 0.000 X10*3/uL (0.0-0.012); NRBC Pct Auto 0.0 /100WBC (0.0-0.2); Platelet Count 205 X10*3/uL (160-400); Red Blood Count 4.40 X10*6/uL (4.20-5.50); White Blood Count 10.0 X10*3/uL (4.8-10.8)
[2024-10-30 12:14] LABS: Alanine Aminotransferase 24 U/L (0-31); Albumin Level 4.5 g/dL (3.5-5.0); Alkaline Phosphatase 45 U/L (39-117); Anion Gap 11 (12-20); Aspartate Amino Transferase 21 U/L (5-31); Blood Urea Nitrogen 12 mg/dL (9-16); Calcium 9.3 mg/dL (8.4-10.2); Carbon Dioxide 26 mmol/L (22-29); Chloride 108 mmol/L (96-108); Cholesterol 189 mg/dL (<200); Estimated Glomerular Filt Rate > 60; HDL Cholesterol 45 mg/dL (>40); Potassium 4.5 mmol/L (3.3-5.1); Sodium 140 mmol/L (135-145); Total Protein 7.5 g/dL (6.5-8.0); Triglycerides 97 mg/dL (<150)
[2024-10-30 12:26] LABS: Syphilis Screen Nonreactive (Nonreactive)
[2024-10-30 12:31] LABS: Thyroid Stimulating Hormone 0.44 uIU/mL (0.32-4.0)
[2024-10-30 13:07] LABS: HBS Num1 1.09 mIU/mL (0-7.99); HBc Num1 0.09 S/CO (0.00-0.79); HBsAGNum1 0.32 S/CO (0.00-0.99); HIV Num 1 0.06 S/CO (0.00-0.99); Hepatitis B Surface Antigen Negative (Negative); ~HepC Num1 0.10 S/CO (0.00-0.79); ~Hepatitis B Surface Antibody NONREACTIVE (Nonreactive); ~Hepatitis C Antibody Nonreactive (Nonreactive)
[2024-10-31 09:04] LABS: Follicle Stimulating Hormone 8.7 mIU/mL
[2024-11-04 13:29] LABS: Testosterone, Free 3.8 pg/mL (0.1-6.4)
== END 2024-10-30 10:53 | disposition home or self-care (01) ==
LOC: HO.LAB 10:52
PROVIDERS: PCP Internal Medicine; Visit Provider Internal Medicine
DX: Z11.3 Encounter for screening for infections with a predominantly sexual mode of transmission (principal); Z11.4 Encounter for screening for human immunodeficiency virus [HIV]; Z11.59 Encounter for screening for other viral diseases; E28.2 Polycystic ovarian syndrome; L68.0 Hirsutism; L70.9 Acne, unspecified; E78.5 Hyperlipidemia, unspecified; E66.812 Obesity, class 2; Z68.36 Body mass index [BMI] 36.0-36.9, adult
CPT/HCPCS: 36415; 80053; 80061; 82627; 83001; 83002; 84270; 84402; 84403; 84443; 85025; 86704; 86706; 86780; 86803; 87340; 87389